=== PATIENT | female | born 1975 | race Native Hawaiian/Other Pacific Islander ===

== ENCOUNTER 2022-07-12 12:30 | Outpatient (CLI) | payer BC ==
[~2022-07-12] VITALS: Ht 167.6 cm; Wt 58.1 kg
[2022-07-12 13:00] VITALS: BP 126/70; TEMP 98.7
[2022-07-12 14:13] VITALS: BP 119/68; TEMP 98.3
== END 2022-07-12 19:05 | disposition home or self-care (01) ==
LOC: INF 12:30
PROVIDERS: ATTEND Internal Medicine
DX: M85.80 Other specified disorders of bone density and structure, unspecified site (principal)
CPT/HCPCS: 36415; 82310; 96372; J0897